=== PATIENT | female | born 2000 | race Caucasian/White ===

== ENCOUNTER 2023-01-24 15:52 | Emergency (ER) | payer BC, SELFPAY ==
[2023-01-24 16:12] VITALS: BP 118/78; PULSE 105; RESP 16; TEMP 37.1; O2SAT 99
--- NOTE | 2023-01-24 16:56 | ED.GENADULT ---
HPI - General Adult General Chief complaint: Back Pain/Injury Stated complaint: Vomiting/Lower Back Pain Time Seen by Provider: 01/24/23 16:56 Source: patient Mode of arrival: ambulatory Limitations: no limitations History of Present Illness HPI narrative: 22-year-old female presented for complaint of right lower back pain for 4 days. Rates pain 10/10. Worse when standing. She started with nausea and emesis yesterday. She found out she was yesterday with positive home preg test. Denies urinary complaints, vaginal bleeding or abdominal pain. Unable to tolerate food. She has been able to keep fluids down. Took Tylenol early this morning. Related Data Allergies Allergy/AdvReac Type Severity Reaction Status Date / Time No Known Allergies Allergy Unverified 01/18/19 14:36 Review of Systems Review of Systems: CONSTITUTIONAL: Denies body aches, fever, chills EYES: Denies visual changes CARDIOVASCULAR: Denies chest pain, palpitations, or edema. RESPIRATORY: Denies cough or dyspnea. GASTROINTESTINAL: Denies abdominal pain, nausea, vomiting, or diarrhea. SKIN: Denies rash, itching, or wounds. MUSCULOSKELETAL: reports right lower back pain NEUROLOGIC: Denies headache, numbness, tingling, or weakness. All systems reviewed & are unremarkable except as noted in HPI and below PMFSH Past Medical History Medical History (Updated 01/24/23 @ 18:32 by Jodie Hopkins, DEANDRE) No pertinent past medical history Comments At time of signature, I have reviewed and agree with nursing past medical, surgical, social and family history unless otherwise noted. Please see nursing chart for further information. There is no relevant family history pertinent to the presenting complaint Exam Narrative: GENERAL: Appears in pain, in no acute distress. EYES: conjunctivae clear NECK: Supple. full ROM CHEST: Speaks in full sentences. No respiratory distress. HEART: Regular rate and rhythm. Normal and equal peripheral pulses. ABD: soft, nontender, no rigidity or asymmetry; positive bowel sounds. MUSC: Right flank pain, reports pain is better with some pressure but pain is worse with deeper palpation. BLEs with normal strength and sensation, normal range of motion. No open wounds, or obvious deformity; pulse palpable and equal bilaterally, skin warm, dry, pink. Capillary refill less than 3 seconds. Gait steady. SKIN: Warm, dry, no rash. NEURO: Alert and oriented x3. Course Course Emergency Course: Patient is aware of diagnosis, understands and agrees to treatment plan. Anticipatory guidance given. Patient agrees to follow-up as directed and is aware of reasons to seek care at the emergency department. Portions of this record may have been created with voice recognition software Level of Care: Express Care Visit Vital Signs Vital signs: Vital Signs Temperature 98.8 F 01/24/23 16:12 Pulse Rate 105 H 01/24/23 16:12 Respiratory Rate 16 01/24/23 16:12 Blood Pressure 118/78 01/24/23 16:12 Pulse Oximetry 99 01/24/23 16:12 Oxygen Delivery Room Air 01/24/23 16:12 Temperature 98.8 F 01/24/23 16:12 Pulse Rate 105 H 01/24/23 16:12 Respiratory Rate 16 01/24/23 16:12 Blood Pressure 118/78 01/24/23 16:12 Pulse Oximetry 99 01/24/23 16:12 Oxygen Delivery Room Air 01/24/23 16:12 Reviewed Medical Decision Making MDM Narrative Medical decision making narrative: Discussed physical exam findings, Urine shows +nitrate, leuk, protein; POS test. Advised ER transfer as pt rates pain 10/10. Patient declines, stating I don't want to wait hours in the ER. Will send abx. The patient is AA&Ox3, free from distracting injury. 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 Given the patients presentation, we communicated our con
== END 2023-01-24 17:14 | disposition left against medical advice (07) ==
PROVIDERS: Emergency Provider Nurse Practitioner Family
DX: M54.50 Low back pain, unspecified (principal)
CPT/HCPCS: 81003; 81025; 87086; 87088; 99213; G0463